=== PATIENT | male | born 1980 | race Two or more races ===

== ENCOUNTER 2017-08-20 17:46 | Observation (INO) | payer OTHER, MEDICAID ==
[~2017-08-20] VITALS: Ht 180.3 cm; Wt 83.9 kg
[~2017-08-20 17:46] MED LIST: ASCO500T11 PO; DOXY-216 PO; IBUP800T24 PO; METF500T PO
[2017-08-20] MEDS ORDERED: ACETAMINOPHEN 325 MG TAB PO ONE (18:15)
[2017-08-20] MEDS ORDERED: SODIUM CHLORIDE 0.9% 1,000 ML IVB ONE (19:05)
[2017-08-20 19:06] LABS: Basophils # (auto) 0.1 uL; Basophils % (auto) 0.8 % (0.0-2.0); Eosinophils # (auto) 0.1 uL; Eosinophils % (auto) 1.3 % (0.0-7.0); Hematocrit 35.2 % (41.0-53.0); Hemoglobin 11.5 g/dL (13.5-17.5); Lymphocytes # (auto) 0.9 uL; Mean Corpuscular Hemoglobin 28.4 pg (28.0-32.0); Mean Corpuscular Hgb Conc. 32.7 g/dL (32.0-36.0); Mean Corpuscular Volume 86.9 fL (80.0-100.0); Monocytes # (auto) 0.6 uL; Monocytes % (auto) 7.5 % (0.0-12.0); Neutrophils % (auto) 80.4 % (37.0-80.0); Platelet Count (auto) 329 10^3/uL (140-450); Red Blood Cells 4.05 10^6/uL (4.5-5.90); Red Cell Distribution Width 14.8 % (11.8-14.3); White Blood Cell 8.7 10^3/uL (4.4-10.8)
[2017-08-20 19:24] LABS: Albumin 2.2 g/dL (3.4-5.0); BUN/Creatinine Ratio 16.1; Calcium 8.1 mg/dL (8.5-10.1); Potassium 3.4 mmol/L (3.5-5.1)
[2017-08-20 19:27] LABS: Bilirubin, Total 0.2 mg/dL (0.2-1.0); Total Protein 7.9 g/dL (6.4-8.2)
[2017-08-20 19:53] LABS: INR 0.92 (0.9-1.15); Partial Thromboplastin Time 21.7 sec (22.64-33.71)
[2017-08-20] MEDS ORDERED: cefTRIAXone 1GM/10ml IVPUSH 10 ML IV ONE (20:00)
[2017-08-20 20:58] LABS: Urine Bacteria MANY /hpf (None Seen); Urine Blood Negative /uL (Negative); Urine Mucus FEW (None Seen); Urine WBC 36 /hpf (0 - 3)
[2017-08-20] MEDS ORDERED: VANCOMYCIN 1GM/250ML 250 ML IV ONE (21:45)
[2017-08-20] MEDS ORDERED: PIPERACILLIN-TAZO 4.5GM 100 ML IV ONE (21:45)
[2017-08-20 22:00] VITALS: BP 128/78
[2017-08-20] MEDS ORDERED: MORPHINE SULFATE 4 MG/ML SYR/VIAL IV ONE (22:00)
[2017-08-20] MEDS ORDERED: MORPHINE SULFATE INJECTION 1 ML ONE (22:43)
== END 2017-08-21 02:04 | disposition home or self-care (01) | DRG 592 ==
LOC: EDBD 17:46 → ER 17:51 → OVERFLOW 19:07 → ER 08-21 02:04
PROVIDERS: ADMIT Family Medicine; ATTEND Family Medicine
DX: L89.314 Pressure ulcer of right buttock, stage 4 (principal); L89.130 Pressure ulcer of right lower back, unstageable; G82.20 Paraplegia, unspecified; N39.0 Urinary tract infection, site not specified; E11.9 Type 2 diabetes mellitus without complications; I10 Essential (primary) hypertension; F32.9 Major depressive disorder, single episode, unspecified; F41.9 Anxiety disorder, unspecified; T83.511D Infection and inflammatory reaction due to indwelling urethral catheter, subsequent encounter; W34.00XD Accidental discharge from unspecified firearms or gun, subsequent encounter; Y84.6 Urinary catheterization as the cause of abnormal reaction of the patient, or of later complication, without mention of misadventure at the time of the procedure; Z82.49 Family history of ischemic heart disease and other diseases of the circulatory system
CPT/HCPCS: 36415; 71045; 80053; 81001; 83605; 83735; 85025; 85610; 85730; 87040; 93005; 96361; 96365; 96367; 96375; 99285; G0378; J2270; J2543; J3370

== ENCOUNTER 2017-12-11 22:15 | Emergency (ER) | payer OTHER, MEDICAID ==
[~2017-12-11] VITALS: Ht 180.3 cm; Wt 84.8 kg
[2017-12-11 22:58] LABS: Basophils # (auto) 0.1 uL; Basophils % (auto) 0.7 % (0.0-2.0); Eosinophils # (auto) 0.1 uL; Hemoglobin 10.2 g/dL (13.5-17.5); Lymphocytes # (auto) 1.1 uL; Lymphocytes % (auto) 14.7 % (10.0-50.0); Mean Corpuscular Volume 86.9 fL (80.0-100.0); Monocytes # (auto) 0.6 uL; Neutrophils # (auto) 5.5 uL; Red Cell Distribution Width 16.2 % (11.8-14.3)
[2017-12-11 23:00] LABS: Eosinophils % (auto) 1.8 % (0.0-7.0); Hematocrit 31.1 % (41.0-53.0); Mean Corpuscular Hemoglobin 28.5 pg (28.0-32.0); Mean Corpuscular Hgb Conc. 32.8 g/dL (32.0-36.0); Monocytes % (auto) 7.6 % (0.0-12.0); Neutrophils % (auto) 75.2 % (37.0-80.0); Platelet Count (auto) 545 10^3/uL (140-450); Red Blood Cells 3.58 10^6/uL (4.5-5.90); White Blood Cell 7.3 10^3/uL (4.4-10.8)
[2017-12-11 23:26] LABS: Alanine Aminotransferase 14 U/L (16-61); Anion Gap 13 (5-15); Aspartate Aminotransferase 6 U/L (15-37); BUN/Creatinine Ratio 12.3; Blood Urea Nitrogen 8 mg/dL (7-18); Calcium 8.5 mg/dL (8.5-10.1); Carbon Dioxide 20 mmol/L (21-32); Chloride 100 mmol/L (98-107); GFR African American 178 mL/min; GFR Non-African American 147 mL/min; Glucose 274 mg/dL (74-106); Potassium 3.1 mmol/L (3.5-5.1); Sodium 133 mmol/L (136-145)
[2017-12-11 23:28] LABS: Alkaline Phosphatase 93 U/L (45-117); Bilirubin, Total < 0.1 mg/dL (0.2-1.0); Lactic Acid w/Reflex 2.7 mmol/L (0.4-2.0); Total Protein 7.2 g/dL (6.4-8.2)
[2017-12-12] MEDS ORDERED: CLINDAMYCIN 900MG IV 50 ML IV ONE (03:45)
[2017-12-12] MEDS ORDERED: SODIUM CHLORIDE 0.9% 1,000 ML IV ONE (03:45)
[2017-12-12] MEDS ORDERED: PIPERACILLIN-TAZOB 3.375GM 100 ML IV ONE (03:45)
[2017-12-12] MEDS ORDERED: ONDANSETRON HCL 4 MG/2 ML VIAL IV ONE (04:30)
[2017-12-12] MEDS ORDERED: MORPHINE SULFATE 4 MG/ML SYR/VIAL IV ONE (04:30)
[2017-12-12] MEDS ORDERED: diphenhdrAMINE HCL 50 MG/1 ML VL IV ONE (05:15)
[2017-12-12 06:19] LABS: Urine Bacteria MANY /hpf (None Seen); Urine Blood TRACE /uL (Negative); Urine Mucus FEW (None Seen); Urine Specific Gravity 1.017 (1.001-1.035); Urine WBC 23 /hpf (0 - 3)
[2017-12-12 07:08] LABS: INR 0.96 (0.9-1.15); Partial Thromboplastin Time 30.8 sec (23.78-33.04); Prothrombin Time 10.3 sec (9.27-12.13)
[2017-12-12] MEDS ORDERED: MORPHINE SULFATE 4 MG/ML SYR/VIAL IV PRN (10:00)
[2017-12-12 13:22] VITALS: BP 110/79
== END 2017-12-12 13:44 | disposition short-term general hospital (02) ==
LOC: ER 22:15
DX: L89.894 Pressure ulcer of other site, stage 4 (principal); E11.622 Type 2 diabetes mellitus with other skin ulcer; I10 Essential (primary) hypertension; Z79.899 Other long term (current) drug therapy; Z79.84 Long term (current) use of oral hypoglycemic drugs
CPT/HCPCS: 36415; 36600; 71045; 80053; 81001; 82805; 83605; 85025; 85610; 85730; 87040; 87077; 87186; 87205; 93005; 96365; 96366; 96368; 96375; 96376; 99285; J1200; J2270; J2405; J2543; J3490; J7030

== ENCOUNTER 2020-11-14 15:31 | Inpatient (IN) | payer OTHER, MEDICAID ==
[~2020-11-14] VITALS: Ht 180.3 cm; Wt 82.0 kg
[~2020-11-14 15:31] MED LIST changes: -DOXY-216 PO; +DOXY-286 PO; -IBUP800T24 PO; +IBUP800T27 PO
[2020-11-14] MEDS ORDERED: SODIUM CHLORIDE 0.9% 1,000 ML IV ONE ×2 (16:00)
[2020-11-14] MEDS ORDERED: PIPERACILLIN-TAZOB 3.375GM 100 ML IV ONE (16:00)
[2020-11-14] MEDS ORDERED: POTA1TAB4 (16:14)
[2020-11-14] MEDS ORDERED: INSLANTI SC (16:14)
[2020-11-14] MEDS ORDERED: CHOL1TAB42 PO (16:14)
[2020-11-14] MEDS ORDERED: AMOX500T92 (16:14)
[2020-11-14] MEDS ORDERED: APIX5TAB PO (16:14)
[2020-11-14] MEDS ORDERED: [UNRECOGNIZED DRUG - CODE] (16:14)
[2020-11-14] MEDS ORDERED: LEVO75TA6 PO (16:14)
[2020-11-14] MEDS ORDERED: PANT40T (16:14)
[2020-11-14] MEDS ORDERED: ENAL20TA8 PO (16:14)
[2020-11-14 17:26] LABS: Basophils # (auto) 0 10 ^3/uL (0-0.2); Basophils % (auto) 0.2 % (0.0-2.0); Eosinophils # (auto) 0 10 ^3/uL (0-0.8); Eosinophils % (auto) 0.1 % (0.0-7.0); Hematocrit 24.5 % (41.0-53.0); Hemoglobin 8.3 g/dL (13.5-17.5); Lymphocytes # (auto) 0.3 10 ^3/uL (0.4-5.4); Lymphocytes % (auto) 1.7 % (10.0-50.0); Mean Corpuscular Hemoglobin 25.3 pg (28.0-32.0); Mean Corpuscular Hgb Conc. 33.8 g/dL (32.0-36.0); Mean Corpuscular Volume 74.8 fL (80.0-100.0); Monocytes # (auto) 0.6 10 ^3/uL (0-1.3); Monocytes % (auto) 3.4 % (0.0-12.0); Neutrophils # (auto) 15.3 10 ^3/uL (1.6-8.6); Neutrophils % (auto) 94.6 % (37.0-80.0); Red Blood Cells 3.27 10^6/uL (4.5-5.90); Red Cell Distribution Width 16.6 % (11.8-14.3); White Blood Cell 16.2 10^3/uL (4.4-10.8)
[2020-11-14 17:35] LABS: Albumin 1.9 g/dL (3.4-5.0); Anion Gap 8 (5-15); BUN/Creatinine Ratio 22.8; Blood Urea Nitrogen 33 mg/dL (7-18); Carbon Dioxide 17 mmol/L (21-32); Chloride 105 mmol/L (98-107); GFR African American 69 mL/min; GFR Non-African American 57 mL/min; Glucose 175 mg/dL (74-106); Potassium 4.8 mmol/L (3.5-5.1); Sodium 130 mmol/L (136-145)
[2020-11-14 17:38] LABS: INR 1.13 (0.9-1.15); Partial Thromboplastin Time 37.1 sec (23.0-31.2)
[2020-11-14 17:46] LABS: Alanine Aminotransferase 21 U/L (16-61); Alkaline Phosphatase 290 U/L (45-117); Aspartate Aminotransferase 14 U/L (15-37); Bilirubin, Total 0.7 mg/dL (0.2-1.0); Total Protein 6.6 g/dL (6.4-8.2)
[2020-11-14] MEDS ORDERED: IOHEXOL 300 MG/ML 100ML BOTTLE IJ ONE (18:02)
[2020-11-14] MEDS ORDERED: VANCOMYCIN PER PHARMACY 0 MG IV SCH (19:00)
[2020-11-14] MEDS ORDERED: ONDANSETRON HCL 4 MG/2 ML VIAL IV PRN (19:00)
[2020-11-14] MEDS ORDERED: NITROGLYCERIN 0.4 MG SL TAB SL PRN (19:00)
[2020-11-14 19:10] LABS: Urine Bacteria FEW /hpf (None Seen); Urine Blood Negative /uL (Negative); Urine Specific Gravity 1.018 (1.001-1.035); Urine WBC 9 /hpf (0 - 3)
[2020-11-14 19:23] LABS: Alcohol, Urine < 3.0 mg/dL (0-10); Amphetamine Screen, Urine NEGATIVE (NEGATIVE); Barbiturate Scree,Urine NEGATIVE (NEGATIVE); Benzodiazephine Screen, Urine NEGATIVE (NEGATIVE); Cannabinoid Screen, Urine NEGATIVE (NEGATIVE); Cocaine Screen, Urine NEGATIVE (NEGATIVE); Opiate Scree,Urine NEGATIVE (NEGATIVE); Phencyclidine Screen, Urine NEGATIVE (NEGATIVE)
[2020-11-14] MEDS ORDERED: VANCOMYCIN 1GM/250ML 250 ML IV ONE (20:00)
[2020-11-14] MEDS: MORPHINE SULF INJ 2 MG/ML SYRINGE 1ML IV PRN (21:32)
[2020-11-14 23:00] VITALS: BP 123/63
[2020-11-15] MEDS: metroNIDAZOLE 500MG/100ML 100 ML IV SCH ×2 (00:27→06:06)
[2020-11-15] MEDS: MORPHINE SULF INJ 2 MG/ML SYRINGE 1ML IV PRN ×7 (00:35→21:26)
[2020-11-15] MEDS ORDERED: dilTIAZem 25 MG/5 ML VIAL IV ONE (01:30)
[2020-11-15] MEDS: SODIUM CHLORIDE 0.9% 1,000 ML IV SCH ×3 (01:40→15:00)
[2020-11-15] MEDS ORDERED: LABETALOL HCL 5 MG/ML 4ML SYRINGE IV ONE (03:00)
[2020-11-15 05:39] VITALS: BP 121/60
[2020-11-15 07:18] LABS: Basophils # (auto) 0 10 ^3/uL (0-0.2); Basophils % (auto) 0.4 % (0.0-2.0); Eosinophils # (auto) 0 10 ^3/uL (0-0.8); Eosinophils % (auto) 0.1 % (0.0-7.0); Hematocrit 21.1 % (41.0-53.0); Lymphocytes # (auto) 0.4 10 ^3/uL (0.4-5.4); Lymphocytes % (auto) 3.3 % (10.0-50.0); Mean Corpuscular Hemoglobin 25.7 pg (28.0-32.0); Monocytes # (auto) 0.7 10 ^3/uL (0-1.3); Monocytes % (auto) 6.2 % (0.0-12.0); Neutrophils # (auto) 10.1 10 ^3/uL (1.6-8.6); Red Cell Distribution Width 16.6 % (11.8-14.3); White Blood Cell 11.2 10^3/uL (4.4-10.8)
[2020-11-15 07:51] LABS: Potassium 4.4 mmol/L (3.5-5.1)
[2020-11-15 07:58] LABS: Albumin 1.7 g/dL (3.4-5.0); BUN/Creatinine Ratio 24.2; Bilirubin, Total 0.6 mg/dL (0.2-1.0); Calcium 7.4 mg/dL (8.5-10.1); Total Protein 5.8 g/dL (6.4-8.2)
[2020-11-15 09:00] VITALS: BP 111/54
[2020-11-15] MEDS ORDERED: levoFLOXacin 500MG 100 ML IV SCH (10:00)
[2020-11-15] MEDS ORDERED: DEXTROSE (50%) 50ML SYRG IV PRN (11:00)
[2020-11-15] MEDS ORDERED: PANTOPRAZOLE 40 MG TAB PO ONE (11:15)
[2020-11-15] MEDS: VANCOMYCIN 1GM/250ML 250 ML IV SCH ×2 (11:41→22:44)
[2020-11-15] MEDS: ACCU-CHEK COMFORT CURVE STRIP VI SCH ×2 (11:43→17:24)
[2020-11-15] MEDS: InsuLIN REG 1unit/0.01ml Soln (100units/ml) SC SCH ×2 (12:17→17:41)
[2020-11-15 13:00] VITALS: BP 109/67
[2020-11-15 13:54] LABS: % Iron Saturation 6.2 % (20-55)
[2020-11-15] MEDS: IRON SUCROSE COMPLEX 200 MG in SODIUM CHL 0.9% 100 ML IV SCH (15:00)
[2020-11-15] MEDS: MEROPENEM 1GM IVPB 100 ML IV SCH ×2 (15:00→17:35)
[2020-11-15 17:00] VITALS: BP 129/62
[2020-11-15 22:15] VITALS: BP 152/74
[2020-11-15] MEDS: HYDROcodone-ACET 5/325MG TAB PO PRN (22:44)
[2020-11-16] MEDS: InsuLIN REG 1unit/0.01ml Soln (100units/ml) SC SCH ×4 (00:05→18:08)
[2020-11-16] MEDS: SODIUM CHLORIDE 0.9% 1,000 ML IV SCH ×3 (01:00→22:49)
[2020-11-16] MEDS: MORPHINE SULF INJ 2 MG/ML SYRINGE 1ML IV PRN ×6 (01:26→23:39)
[2020-11-16] MEDS: MEROPENEM 1GM IVPB 100 ML IV SCH ×3 (05:18→22:49)
[2020-11-16] MEDS: ACCU-CHEK COMFORT CURVE STRIP VI SCH ×4 (06:00→18:07)
[2020-11-16] MEDS: LEVOTHYROXINE SODIUM 25 MCG TAB PO SCH (06:08)
[2020-11-16] MEDS: HYDROcodone-ACET 5/325MG TAB PO PRN (06:08)
[2020-11-16 08:30] VITALS: BP 111/61
[2020-11-16 08:50] LABS: Basophils # (auto) 0 10 ^3/uL (0-0.2); Basophils % (auto) 0.4 % (0.0-2.0); Eosinophils # (auto) 0 10 ^3/uL (0-0.8); Eosinophils % (auto) 0.1 % (0.0-7.0); Hematocrit 20.2 % (41.0-53.0); Lymphocytes # (auto) 0.6 10 ^3/uL (0.4-5.4); Lymphocytes % (auto) 5.4 % (10.0-50.0); Mean Corpuscular Hemoglobin 25.6 pg (28.0-32.0); Mean Corpuscular Hgb Conc. 34.5 g/dL (32.0-36.0); Mean Corpuscular Volume 74.2 fL (80.0-100.0); Monocytes # (auto) 0.9 10 ^3/uL (0-1.3); Monocytes % (auto) 7.5 % (0.0-12.0); Neutrophils # (auto) 10.4 10 ^3/uL (1.6-8.6); Neutrophils % (auto) 86.6 % (37.0-80.0); Red Blood Cells 2.73 10^6/uL (4.5-5.90); Red Cell Distribution Width 16.5 % (11.8-14.3)
[2020-11-16] MEDS: PANTOPRAZOLE 40 MG TAB PO SCH (09:07)
[2020-11-16 09:25] LABS: BUN/Creatinine Ratio 17.3; Calcium 8.1 mg/dL (8.5-10.1); Potassium 4.1 mmol/L (3.5-5.1)
[2020-11-16] MEDS: VANCOMYCIN 1GM/250ML 250 ML IV SCH ×2 (11:00→12:25)
[2020-11-16] MEDS: IRON SUCROSE COMPLEX 200 MG in SODIUM CHL 0.9% 100 ML IV SCH (11:16)
[2020-11-16] MEDS ORDERED: SODIUM FERR GLUC 62.5MG/5ML 125 MG in SODIUM CHL 0.9% 100 ML IV ONE (12:15)
[2020-11-16 12:30] VITALS: BP 127/74
[2020-11-16 17:00] VITALS: BP 134/63
[2020-11-16] MEDS ORDERED: IOHEXOL 300 MG/ML 100ML BOTTLE IJ ONE ×2 (18:39→18:45)
[2020-11-16 20:00] VITALS: BP 129/68
[2020-11-16 22:00] VITALS: BP 120/68
[2020-11-17] VITALS (8 sets, daily range): BP systolic 122–144; BP diastolic 60–81
[2020-11-17] MEDS: ACCU-CHEK COMFORT CURVE STRIP VI SCH ×4 (00:10→17:58)
[2020-11-17] MEDS: InsuLIN REG 1unit/0.01ml Soln (100units/ml) SC SCH ×5 (00:10→23:09)
[2020-11-17] MEDS: VANCOMYCIN 1GM/250ML 250 ML IV SCH (02:45)
[2020-11-17] MEDS: MORPHINE SULF INJ 2 MG/ML SYRINGE 1ML IV PRN ×8 (02:45→21:16)
[2020-11-17] MEDS: MEROPENEM 1GM IVPB 100 ML IV SCH ×3 (05:55→21:16)
[2020-11-17] MEDS: LEVOTHYROXINE SODIUM 25 MCG TAB PO SCH (06:04)
[2020-11-17 06:17] LABS: Basophils # (auto) 0 10 ^3/uL (0-0.2); Basophils % (auto) 0.3 % (0.0-2.0); Lymphocytes # (auto) 0.7 10 ^3/uL (0.4-5.4); Monocytes # (auto) 0.8 10 ^3/uL (0-1.3); Neutrophils # (auto) 8.3 10 ^3/uL (1.6-8.6); White Blood Cell 9.9 10^3/uL (4.4-10.8)
[2020-11-17 06:22] LABS: Eosinophils # (auto) 0.1 10 ^3/uL (0-0.8); Eosinophils % (auto) 0.7 % (0.0-7.0); Hematocrit 19.5 % (41.0-53.0); Lymphocytes % (auto) 6.7 % (10.0-50.0); Mean Corpuscular Hgb Conc. 34.6 g/dL (32.0-36.0); Mean Corpuscular Volume 75.1 fL (80.0-100.0); Monocytes % (auto) 8.2 % (0.0-12.0); Neutrophils % (auto) 84.1 % (37.0-80.0); Nucleated Red Blood Cells % 0.1 %; Red Blood Cells 2.59 10^6/uL (4.5-5.90); Red Cell Distribution Width 16.6 % (11.8-14.3)
[2020-11-17 06:28] LABS: Hemoglobin 6.7 g/dL (13.5-17.5)
[2020-11-17 06:34] LABS: Calcium 7.6 mg/dL (8.5-10.1); Potassium 4.2 mmol/L (3.5-5.1)
[2020-11-17 06:36] LABS: BUN/Creatinine Ratio 15.3
[2020-11-17] MEDS: SODIUM CHLORIDE 0.9% 1,000 ML IV SCH ×2 (06:52→11:45)
[2020-11-17] MEDS: PANTOPRAZOLE 40 MG TAB PO SCH (08:47)
[2020-11-17] MEDS: SODIUM FERR GLUC 62.5MG/5ML 125 MG in SODIUM CHL 0.9% 100 ML IV SCH (09:54)
[2020-11-18] MEDS: ACCU-CHEK COMFORT CURVE STRIP VI SCH ×4 (00:15→18:22)
[2020-11-18] MEDS: MORPHINE SULF INJ 2 MG/ML SYRINGE 1ML IV PRN ×9 (00:20→23:45)
[2020-11-18 05:00] VITALS: BP 115/69
[2020-11-18] MEDS: SODIUM CHLORIDE 0.9% 1,000 ML IV SCH (05:05)
[2020-11-18 05:46] LABS: Basophils # (auto) 0.1 10 ^3/uL (0-0.2); Basophils % (auto) 0.6 % (0.0-2.0); Eosinophils # (auto) 0.1 10 ^3/uL (0-0.8); Eosinophils % (auto) 1.5 % (0.0-7.0); Hematocrit 23.4 % (41.0-53.0); Lymphocytes # (auto) 0.6 10 ^3/uL (0.4-5.4); Lymphocytes % (auto) 6.6 % (10.0-50.0); Mean Corpuscular Hemoglobin 26.1 pg (28.0-32.0); Mean Corpuscular Hgb Conc. 34.3 g/dL (32.0-36.0); Mean Corpuscular Volume 76.2 fL (80.0-100.0); Monocytes # (auto) 0.7 10 ^3/uL (0-1.3); Monocytes % (auto) 7.8 % (0.0-12.0); Neutrophils % (auto) 83.5 % (37.0-80.0); Red Blood Cells 3.07 10^6/uL (4.5-5.90); Red Cell Distribution Width 16.5 % (11.8-14.3); White Blood Cell 9.6 10^3/uL (4.4-10.8)
[2020-11-18 06:07] LABS: BUN/Creatinine Ratio 15.9; Calcium 7.7 mg/dL (8.5-10.1); Potassium 4.5 mmol/L (3.5-5.1)
[2020-11-18] MEDS: MEROPENEM 1GM IVPB 100 ML IV SCH ×3 (06:31→22:15)
[2020-11-18] MEDS: LEVOTHYROXINE SODIUM 25 MCG TAB PO SCH (06:32)
[2020-11-18] MEDS: InsuLIN REG 1unit/0.01ml Soln (100units/ml) SC SCH ×3 (06:34→18:31)
[2020-11-18 09:00] VITALS: BP 143/83
[2020-11-18] MEDS: PANTOPRAZOLE 40 MG TAB PO SCH (10:12)
[2020-11-18] MEDS: VANCOMYCIN 1GM/250ML 250 ML IV SCH (10:12)
[2020-11-18] MEDS: SODIUM FERR GLUC 62.5MG/5ML 125 MG in SODIUM CHL 0.9% 100 ML IV SCH (12:08)
[2020-11-18 13:00] VITALS: BP 138/78
[2020-11-18] MEDS ORDERED: POLYETHYLENE GLYCOL 17 GM PWDR PO ONE (14:15)
[2020-11-18 17:00] VITALS: BP 133/73
[2020-11-18] MEDS ORDERED: OXYCODONE W/ ACETAMINOPHEN 5/325MG TABLET PO ONE (18:30)
[2020-11-18 22:00] VITALS: BP 124/80
[2020-11-19] MEDS: ACCU-CHEK COMFORT CURVE STRIP VI SCH ×4 (00:17→17:54)
[2020-11-19] MEDS: InsuLIN REG 1unit/0.01ml Soln (100units/ml) SC SCH ×4 (00:18→17:53)
[2020-11-19] MEDS: MORPHINE SULF INJ 2 MG/ML SYRINGE 1ML IV PRN ×6 (02:43→22:16)
[2020-11-19 05:00] VITALS: BP 120/54
[2020-11-19] MEDS: MEROPENEM 1GM IVPB 100 ML IV SCH ×3 (05:37→22:02)
[2020-11-19 06:05] LABS: Lymphocytes # (auto) 0.8 10 ^3/uL (0.4-5.4); Monocytes # (auto) 0.6 10 ^3/uL (0-1.3); Neutrophils # (auto) 6.8 10 ^3/uL (1.6-8.6); Red Cell Distribution Width 16.8 % (11.8-14.3); White Blood Cell 8.4 10^3/uL (4.4-10.8)
[2020-11-19 06:08] LABS: Basophils # (auto) 0.1 10 ^3/uL (0-0.2); Basophils % (auto) 0.6 % (0.0-2.0); Eosinophils # (auto) 0.1 10 ^3/uL (0-0.8); Eosinophils % (auto) 1.8 % (0.0-7.0); Hematocrit 23.8 % (41.0-53.0); Hemoglobin 8.6 g/dL (13.5-17.5); Lymphocytes % (auto) 9.2 % (10.0-50.0); Mean Corpuscular Hemoglobin 27.4 pg (28.0-32.0); Mean Corpuscular Hgb Conc. 36.3 g/dL (32.0-36.0); Mean Corpuscular Volume 75.5 fL (80.0-100.0); Monocytes % (auto) 7.2 % (0.0-12.0); Neutrophils % (auto) 81.2 % (37.0-80.0); Red Blood Cells 3.15 10^6/uL (4.5-5.90)
[2020-11-19] MEDS: LEVOTHYROXINE SODIUM 25 MCG TAB PO SCH (06:23)
[2020-11-19 06:24] LABS: Potassium 4.4 mmol/L (3.5-5.1)
[2020-11-19 06:29] LABS: BUN/Creatinine Ratio 14.9
[2020-11-19 08:30] VITALS: BP 121/75
[2020-11-19] MEDS: PANTOPRAZOLE 40 MG TAB PO SCH (09:13)
[2020-11-19] MEDS: VANCOMYCIN 1GM/250ML 250 ML IV SCH (10:26)
[2020-11-19] MEDS: OXYCODONE W/ ACETAMINOPHEN 5/325MG TABLET PO PRN ×2 (12:17→20:25)
[2020-11-19 12:31] VITALS: BP 135/71
[2020-11-19] MEDS: SODIUM FERR GLUC 62.5MG/5ML 125 MG in SODIUM CHL 0.9% 100 ML IV SCH (12:46)
[2020-11-19 17:00] VITALS: BP 135/73
[2020-11-19 22:00] VITALS: BP 140/71
[2020-11-20] MEDS: InsuLIN REG 1unit/0.01ml Soln (100units/ml) SC SCH ×4 (01:02→18:27)
[2020-11-20] MEDS: ACCU-CHEK COMFORT CURVE STRIP VI SCH ×4 (01:02→18:13)
[2020-11-20] MEDS: MORPHINE SULF INJ 2 MG/ML SYRINGE 1ML IV PRN ×6 (01:13→23:32)
[2020-11-20 05:00] VITALS: BP 134/77
[2020-11-20 05:36] LABS: Basophils # (auto) 0.1 10 ^3/uL (0-0.2); Eosinophils # (auto) 0.1 10 ^3/uL (0-0.8); Hemoglobin 8.2 g/dL (13.5-17.5); Lymphocytes # (auto) 0.9 10 ^3/uL (0.4-5.4); Monocytes # (auto) 0.6 10 ^3/uL (0-1.3)
[2020-11-20 05:37] LABS: Basophils % (auto) 0.9 % (0.0-2.0); Eosinophils % (auto) 1.4 % (0.0-7.0); Hematocrit 23.7 % (41.0-53.0); Lymphocytes % (auto) 9.7 % (10.0-50.0); Mean Corpuscular Hemoglobin 26.3 pg (28.0-32.0); Mean Corpuscular Hgb Conc. 34.8 g/dL (32.0-36.0); Mean Corpuscular Volume 75.6 fL (80.0-100.0); Monocytes % (auto) 7.1 % (0.0-12.0); Neutrophils # (auto) 7.3 10 ^3/uL (1.6-8.6); Neutrophils % (auto) 80.9 % (37.0-80.0); Red Blood Cells 3.13 10^6/uL (4.5-5.90); Red Cell Distribution Width 16.8 % (11.8-14.3)
[2020-11-20 05:52] LABS: Albumin 1.9 g/dL (3.4-5.0); Potassium 4.3 mmol/L (3.5-5.1)
[2020-11-20 05:56] LABS: BUN/Creatinine Ratio 17.5; Bilirubin, Total 0.3 mg/dL (0.2-1.0); Total Protein 6.9 g/dL (6.4-8.2)
[2020-11-20] MEDS: MEROPENEM 1GM IVPB 100 ML IV SCH ×3 (06:27→22:00)
[2020-11-20] MEDS: LEVOTHYROXINE SODIUM 25 MCG TAB PO SCH (06:27)
[2020-11-20] MEDS: OXYCODONE W/ ACETAMINOPHEN 5/325MG TABLET PO PRN ×2 (06:56→20:38)
[2020-11-20 08:30] VITALS: BP 109/58
[2020-11-20 08:49] VITALS: BP 109/58
[2020-11-20] MEDS: PANTOPRAZOLE 40 MG TAB PO SCH (09:34)
[2020-11-20] MEDS: VANCOMYCIN 1GM/250ML 250 ML IV SCH (09:35)
[2020-11-20] MEDS: SODIUM FERR GLUC 62.5MG/5ML 125 MG in SODIUM CHL 0.9% 100 ML IV SCH (12:45)
[2020-11-20 13:16] VITALS: BP 132/74
[2020-11-20 17:00] VITALS: BP 140/80
[2020-11-20 22:00] VITALS: BP 129/78
[2020-11-21] VITALS (9 sets, daily range): BP systolic 100–139; BP diastolic 53–87
[2020-11-21] MEDS: InsuLIN REG 1unit/0.01ml Soln (100units/ml) SC SCH ×5 (00:18→23:50)
[2020-11-21] MEDS: ACCU-CHEK COMFORT CURVE STRIP VI SCH ×5 (00:18→23:50)
[2020-11-21] MEDS ORDERED: VANCOMYCIN 1GM/250ML 250 ML IV SCH (02:00)
[2020-11-21] MEDS: MORPHINE SULF INJ 2 MG/ML SYRINGE 1ML IV PRN ×6 (02:32→22:10)
[2020-11-21] MEDS: OXYCODONE W/ ACETAMINOPHEN 5/325MG TABLET PO PRN ×2 (05:14→23:40)
[2020-11-21] MEDS: MEROPENEM 1GM IVPB 100 ML IV SCH ×3 (05:55→21:42)
[2020-11-21] MEDS: LEVOTHYROXINE SODIUM 25 MCG TAB PO SCH (06:54)
[2020-11-21] MEDS: PANTOPRAZOLE 40 MG TAB PO SCH (09:09)
[2020-11-21 09:22] LABS: Basophils # (auto) 0.1 10 ^3/uL (0-0.2); Eosinophils # (auto) 0.1 10 ^3/uL (0-0.8); Monocytes # (auto) 0.6 10 ^3/uL (0-1.3); Neutrophils # (auto) 6.8 10 ^3/uL (1.6-8.6)
[2020-11-21 09:23] LABS: Basophils % (auto) 0.9 % (0.0-2.0); Eosinophils % (auto) 1.3 % (0.0-7.0); Hematocrit 26.2 % (41.0-53.0); Hemoglobin 8.7 g/dL (13.5-17.5); Lymphocytes % (auto) 11.5 % (10.0-50.0); Mean Corpuscular Hemoglobin 25.2 pg (28.0-32.0); Mean Corpuscular Hgb Conc. 33.2 g/dL (32.0-36.0); Neutrophils % (auto) 79.3 % (37.0-80.0); Red Blood Cells 3.45 10^6/uL (4.5-5.90); Red Cell Distribution Width 17.6 % (11.8-14.3); White Blood Cell 8.6 10^3/uL (4.4-10.8)
[2020-11-21 09:36] LABS: INR 1.03 (0.9-1.15)
[2020-11-21 09:49] LABS: BUN/Creatinine Ratio 17.4; Calcium 8.3 mg/dL (8.5-10.1); Potassium 4.5 mmol/L (3.5-5.1)
[2020-11-21] MEDS ORDERED: fentaNYL CITRATE 100 MCG/2 ML VL ONE (12:43)
[2020-11-21] MEDS ORDERED: MIDAZOLAM HCL 1MG/1ML-2 ML VIAL ONE (12:44)
[2020-11-21] MEDS ORDERED: LIDOCAINE VISCOUS 2% 15ML UD ONE (12:53)
[2020-11-21] MEDS: SODIUM CHLOR 0.9% PF (SALINE LOCK) 10ML VIAL/SYR IV SCH ×2 (14:48→22:10)
[2020-11-21] MEDS: SODIUM FERR GLUC 62.5MG/5ML 125 MG in SODIUM CHL 0.9% 100 ML IV SCH (14:48)
[2020-11-21] MEDS ORDERED: CEFEPIME 2 GM in SODIUM CHL 0.9% 50 ML IV SCH (22:00)
[2020-11-22] MEDS: MORPHINE SULF INJ 2 MG/ML SYRINGE 1ML IV PRN ×7 (01:28→23:38)
[2020-11-22] MEDS ORDERED: ENOXAPARIN SOD 100 MG/1 ML SYRINGE SC SCH (02:00)
[2020-11-22 05:00] VITALS: BP 144/63
[2020-11-22] MEDS: SODIUM CHLOR 0.9% PF (SALINE LOCK) 10ML VIAL/SYR IV SCH ×4 (05:58→23:08)
[2020-11-22] MEDS: MEROPENEM 1GM IVPB 100 ML IV SCH (05:59)
[2020-11-22] MEDS: ACCU-CHEK COMFORT CURVE STRIP VI SCH ×4 (06:12→23:08)
[2020-11-22] MEDS: InsuLIN REG 1unit/0.01ml Soln (100units/ml) SC SCH ×4 (06:13→23:10)
[2020-11-22] MEDS: LEVOTHYROXINE SODIUM 25 MCG TAB PO SCH (06:59)
[2020-11-22 08:30] VITALS: BP 143/66
[2020-11-22 09:00] VITALS: BP 143/66
[2020-11-22] MEDS: PANTOPRAZOLE 40 MG TAB PO SCH (09:15)
[2020-11-22] MEDS: OXYCODONE W/ ACETAMINOPHEN 5/325MG TABLET PO PRN ×2 (10:34→18:22)
[2020-11-22 12:20] VITALS: BP 131/80
[2020-11-22] MEDS: SODIUM FERR GLUC 62.5MG/5ML 125 MG in SODIUM CHL 0.9% 100 ML IV SCH (13:15)
[2020-11-22] MEDS ORDERED: ENOXAPARIN SOD 80 MG/0.8ML SYRINGE SC SCH (14:00)
[2020-11-22] MEDS ORDERED: LIDOCAINE 1% (LOCAL ANESTH.) PF 5ml SDV ID ONE (14:30)
[2020-11-22 17:06] VITALS: BP 113/55
[2020-11-22 23:06] VITALS: BP 138/95
[2020-11-22] MEDS: APIXABAN 5 MG TAB PO SCH (23:08)
[2020-11-23] MEDS: OXYCODONE W/ ACETAMINOPHEN 5/325MG TABLET PO PRN ×2 (02:22→09:25)
[2020-11-23] MEDS: MORPHINE SULF INJ 2 MG/ML SYRINGE 1ML IV PRN ×7 (03:31→23:13)
[2020-11-23 05:13] VITALS: BP 120/67
[2020-11-23] MEDS: SODIUM CHLOR 0.9% PF (SALINE LOCK) 10ML VIAL/SYR IV SCH ×5 (06:47→22:00)
[2020-11-23] MEDS: ACCU-CHEK COMFORT CURVE STRIP VI SCH ×3 (06:48→18:00)
[2020-11-23] MEDS: LEVOTHYROXINE SODIUM 25 MCG TAB PO SCH (06:49)
[2020-11-23] MEDS: InsuLIN REG 1unit/0.01ml Soln (100units/ml) SC SCH ×4 (06:50→23:01)
[2020-11-23 09:00] VITALS: BP 122/74
[2020-11-23] MEDS: PANTOPRAZOLE 40 MG TAB PO SCH (09:38)
[2020-11-23] MEDS: ERTAPENEM SOD INJ 1 GM in SODIUM CHL 0.9% 50 ML IV SCH (09:38)
[2020-11-23] MEDS: APIXABAN 5 MG TAB PO SCH ×2 (09:38→22:54)
[2020-11-23] MEDS: SODIUM FERR GLUC 62.5MG/5ML 125 MG in SODIUM CHL 0.9% 100 ML IV SCH (12:45)
[2020-11-23 13:00] VITALS: BP 147/89
[2020-11-23 17:31] VITALS: BP 142/92
[2020-11-23 22:00] VITALS: BP 121/68
[2020-11-24] MEDS: MORPHINE SULF INJ 2 MG/ML SYRINGE 1ML IV PRN ×4 (02:35→13:23)
[2020-11-24 05:00] VITALS: BP 135/80
[2020-11-24] MEDS: SODIUM CHLOR 0.9% PF (SALINE LOCK) 10ML VIAL/SYR IV SCH ×3 (05:17→13:40)
[2020-11-24] MEDS: ACCU-CHEK COMFORT CURVE STRIP VI SCH ×3 (05:24→12:21)
[2020-11-24] MEDS: InsuLIN REG 1unit/0.01ml Soln (100units/ml) SC SCH ×2 (05:24→12:00)
[2020-11-24] MEDS: LEVOTHYROXINE SODIUM 25 MCG TAB PO SCH (06:12)
[2020-11-24] MEDS: OXYCODONE W/ ACETAMINOPHEN 5/325MG TABLET PO PRN (07:55)
[2020-11-24 08:00] VITALS: BP 118/70
[2020-11-24 09:00] VITALS: BP 118/70
[2020-11-24] MEDS: ERTAPENEM SOD INJ 1 GM in SODIUM CHL 0.9% 50 ML IV SCH (09:48)
[2020-11-24] MEDS: PANTOPRAZOLE 40 MG TAB PO SCH (09:49)
[2020-11-24] MEDS: APIXABAN 5 MG TAB PO SCH (09:49)
[2020-11-24] MEDS: SODIUM FERR GLUC 62.5MG/5ML 125 MG in SODIUM CHL 0.9% 100 ML IV SCH (12:00)
[2020-11-24 14:07] VITALS: BP 118/70
[2020-11-29] MEDS ORDERED: APIXABAN 5 MG TAB PO SCH (22:00)
== END 2020-11-24 14:40 | disposition home health service (06) | DRG 871 ==
LOC: ER 15:31 → EDBD 15:31 → TELE 18:58 → TELE-EAST 21:58 → EAST 11-16 13:42
PROVIDERS: ADMIT Nurse Practitioner Acute Care; ATTEND Internal Medicine
PROC: 05H933Z Insertion of Infusion Device into Right Brachial Vein, Percutaneous Approach (ICD-10-PCS; 2020-11-16)
PROC: 30233N1 Transfusion of Nonautologous Red Blood Cells into Peripheral Vein, Percutaneous Approach (ICD-10-PCS; principal; 2020-11-17)
PROC: B24BZZ4 Ultrasonography of Heart with Aorta, Transesophageal (ICD-10-PCS; 2020-11-21)
PROC: 05HY33Z Insertion of Infusion Device into Upper Vein, Percutaneous Approach (ICD-10-PCS; 2020-11-22)
PROC: B54MZZA Ultrasonography of Right Upper Extremity Veins, Guidance (ICD-10-PCS; 2020-11-22)
DX: A41.59 Other Gram-negative sepsis (principal); L89.154 Pressure ulcer of sacral region, stage 4; I26.90 Septic pulmonary embolism without acute cor pulmonale; N17.0 Acute kidney failure with tubular necrosis; I33.0 Acute and subacute infective endocarditis; G82.20 Paraplegia, unspecified; E87.1 Hypo-osmolality and hyponatremia; I76 Septic arterial embolism; M46.28 Osteomyelitis of vertebra, sacral and sacrococcygeal region; E44.0 Moderate protein-calorie malnutrition; I82.C12 Acute embolism and thrombosis of left internal jugular vein; R65.20 Severe sepsis without septic shock; C80.1 Malignant (primary) neoplasm, unspecified; D50.9 Iron deficiency anemia, unspecified; E03.9 Hypothyroidism, unspecified; I12.9 Hypertensive chronic kidney disease with stage 1 through stage 4 chronic kidney disease, or unspecified chronic kidney disease; K42.9 Umbilical hernia without obstruction or gangrene; Z20.822 Contact with and (suspected) exposure to COVID-19; Z79.01 Long term (current) use of anticoagulants; Z88.8 Allergy status to other drugs, medicaments and biological substances; Z68.27 Body mass index [BMI] 27.0-27.9, adult; E11.22 Type 2 diabetes mellitus with diabetic chronic kidney disease; E11.69 Type 2 diabetes mellitus with other specified complication; I07.1 Rheumatic tricuspid insufficiency; I83.90 Asymptomatic varicose veins of unspecified lower extremity; K80.20 Calculus of gallbladder without cholecystitis without obstruction; N18.9 Chronic kidney disease, unspecified; Z83.3 Family history of diabetes mellitus; Z86.718 Personal history of other venous thrombosis and embolism; Z87.891 Personal history of nicotine dependence; Z93.3 Colostomy status; Z79.84 Long term (current) use of oral hypoglycemic drugs; E27.8 Other specified disorders of adrenal gland
CPT/HCPCS: 36415; 36569; 71045; 71260; 74177; 74178; 80048; 80053; 80202; 80307; 81001; 82270; 82378; 82565; 82962; 83036; 83540; 83550; 83605; 83615; 83735; 84154; 84443; 84484; 85025; 85049; 85610; 85730; 86850; 86900; 86901; 86920; 87040; 87077; 87081; 87186; 87205; 87426; 93005; 93306; 93312; 93971; 96361; 96365; 96367; 99152; G0378; J1335; J1756; J1815; J1956; J2185; J2250; J2405; J2543; J3490

== ENCOUNTER 2021-09-06 10:28 | Emergency (ER) | payer OTHER, MEDICAID ==
[~2021-09-06] VITALS: Ht 180.3 cm; Wt 89.4 kg
[~2021-09-06 10:28] MED LIST changes: +AMOX500T92; +APIX5TAB PO; +CHOL1TAB42 PO; +ENAL20TA8 PO; +INSLANTI SC; +LEVO75TA6 PO; +PANT40T; +POTA1TAB4; +[UNRECOGNIZED DRUG - CODE]
[2021-09-06 10:32] VITALS: BP 173/99
[2021-09-06] MEDS ORDERED: LIDOCAINE 1%HCL (LOCAL ANESTH) 10 ML MDV ONE (12:22)
[2021-09-06] MEDS ORDERED: LIDOCAINE 1% HCL (LOCAL ANESTH.) INJ 20ML MDV ID ONE (12:30)
[2021-09-06] MEDS ORDERED: IBUP800T27 PO (12:39)
[2021-09-06] MEDS ORDERED: SULF400T11 PO (12:39)
[2021-09-06] MEDS ORDERED: LIDOCAINE 1% HCL (LOCAL ANESTH.) INJ 20ML MDV IJ ONE (12:45)
== END 2021-09-06 12:54 | disposition home or self-care (01) ==
LOC: ER 10:28
DX: L02.212 Cutaneous abscess of back [any part, except buttock and flank] (principal); E11.9 Type 2 diabetes mellitus without complications; K21.9 Gastro-esophageal reflux disease without esophagitis; I10 Essential (primary) hypertension; Z88.1 Allergy status to other antibiotic agents
CPT/HCPCS: 10060; 87205; 99283; J2001

== ENCOUNTER 2023-04-24 14:13 | Inpatient (IN) | payer OTHER, MEDICAID ==
[~2023-04-24] VITALS: Ht 180.3 cm; Wt 119.2 kg
[~2023-04-24 14:13] MED LIST changes: +ENAL1TAB48 PO; -ENAL20TA8 PO; +IBUP-1456 PO; -IBUP800T27 PO; +SULF400T11 PO
[2023-04-24 15:17] LABS: Basophils # (auto) 0 10 ^3/uL (0-0.2); Basophils % (auto) 0.6 % (0.0-2.0); Eosinophils # (auto) 0.3 10 ^3/uL (0-0.8); Eosinophils % (auto) 3.8 % (0.0-7.0); Hematocrit 36.5 % (41.0-53.0); Lymphocytes # (auto) 1.3 10 ^3/uL (0.4-5.4); Mean Corpuscular Hemoglobin 29.1 pg (28.0-32.0); Mean Corpuscular Hgb Conc. 32.9 g/dL (32.0-36.0); Mean Corpuscular Volume 88.5 fL (80.0-100.0); Monocytes # (auto) 0.5 10 ^3/uL (0-1.3); Monocytes % (auto) 6.4 % (0.0-12.0); Neutrophils # (auto) 5.5 10 ^3/uL (1.6-8.6); Neutrophils % (auto) 72.2 % (37.0-80.0); Nucleated Red Blood Cells % 0.1 %; Red Blood Cells 4.12 10^6/uL (4.5-5.90); Red Cell Distribution Width 16.1 % (11.8-14.3); White Blood Cell 7.6 10^3/uL (4.4-10.8)
[2023-04-24 15:45] LABS: Alanine Aminotransferase 26 U/L (7-40); Albumin 3.7 g/dL (3.2-4.8); Alkaline Phosphatase 110 U/L (46-116); Anion Gap 8 (5-15); Aspartate Aminotransferase 21 U/L (13-40); BUN/Creatinine Ratio 16.2 (10.0-20.0); Bilirubin, Total 0.3 mg/dL (0.2-1.0); Blood Urea Nitrogen 22 mg/dL (9-23); Calcium 8.8 mg/dL (8.5-10.1); Carbon Dioxide 20 mmol/L (20-30); Chloride 111 mmol/L (98-107); Glucose 113 mg/dL (74-106); Potassium 5.2 mmol/L (3.5-5.1); Sodium 139 mmol/L (136-145); Total Protein 6.4 g/dL (5.7-8.2)
[2023-04-24] MEDS ORDERED: LABETALOL HCL 5 MG/ML 4ML SYRINGE IV ONE ×2 (18:00→20:16)
[2023-04-24] MEDS ORDERED: ACETAMINOPHEN 325 MG TAB PO PRN (19:15)
[2023-04-24] MEDS ORDERED: NITROGLYCERIN 0.4 MG SL TAB SL PRN (19:15)
[2023-04-24] MEDS ORDERED: DEXTROSE (50%) 50ML SYRG IV PRN (19:30)
[2023-04-24 20:03] VITALS: PULSE 82; RESP 20; O2SAT 98
[2023-04-24] MEDS ORDERED: METOPROLOL TARTRATE 1MG/1ML-5ML VIAL IV ONE (20:13)
[2023-04-24] MEDS ORDERED: MORPHINE SULFATE INJ 2 MG/ml SYRG ONE (20:13)
[2023-04-24 20:27] LABS: Triglycerides 174 mg/dL (< 150)
[2023-04-24 20:28] LABS: LDL Cholesterol 147 mg/dL (< 100)
[2023-04-24] MEDS: SODIUM CHLORIDE 0.9% 1,000 ML IV SCH (20:28)
[2023-04-24 20:29] LABS: Cholesterol 222 mg/dL (< 200); HDL Cholesterol 62 mg/dL (40-59)
[2023-04-24] MEDS ORDERED: HYDROcodone-ACET 10/325MG TAB ONE (20:30)
[2023-04-24] MEDS: HYDROcodone-ACET 10/325MG TAB PO PRN (20:35)
[2023-04-24] MEDS ORDERED: ASCORBIC ACID 500 MG TAB PO SCH (22:00)
[2023-04-24] MEDS: ACCU-CHEK COMFORT CURVE STRIP VI SCH (23:30)
[2023-04-24] MEDS ORDERED: CYCLOBENZAPRINE HCL 10 MG TAB ONE (23:34)
[2023-04-24] MEDS ORDERED: ASCORBIC ACID 500 MG TAB ONE (23:35)
[2023-04-24] MEDS ORDERED: InsuLIN REG 1unit/0.01ml Soln (100units/ml) ONE (23:35)
[2023-04-24] MEDS ORDERED: APIXABAN 5 MG TAB ONE (23:35)
[2023-04-24] MEDS: InsuLIN REG 1unit/0.01ml Soln (100units/ml) SC SCH (23:37)
[2023-04-24] MEDS: ASCORBIC ACID 500 MG TAB PO SCH (23:37)
[2023-04-24] MEDS: CYCLOBENZAPRINE HCL 10 MG TAB PO PRN (23:37)
[2023-04-24] MEDS: APIXABAN 5 MG TAB PO SCH (23:37)
[2023-04-25 02:00] VITALS: PULSE 74; RESP 12; O2SAT 96
[2023-04-25 06:08] LABS: Basophils # (auto) 0.1 10 ^3/uL (0-0.2); Basophils % (auto) 1.2 % (0.0-2.0); Eosinophils # (auto) 0.2 10 ^3/uL (0-0.8); Eosinophils % (auto) 4.6 % (0.0-7.0); Hematocrit 31.2 % (41.0-53.0); Hemoglobin 10.3 g/dL (13.5-17.5); Lymphocytes # (auto) 1.1 10 ^3/uL (0.4-5.4); Lymphocytes % (auto) 22.6 % (10.0-50.0); Mean Corpuscular Hgb Conc. 33.1 g/dL (32.0-36.0); Mean Corpuscular Volume 87.5 fL (80.0-100.0); Monocytes # (auto) 0.4 10 ^3/uL (0-1.3); Monocytes % (auto) 7.9 % (0.0-12.0); Neutrophils # (auto) 3.2 10 ^3/uL (1.6-8.6); Neutrophils % (auto) 63.7 % (37.0-80.0); Red Blood Cells 3.56 10^6/uL (4.5-5.90); Red Cell Distribution Width 15.8 % (11.8-14.3)
[2023-04-25 06:32] LABS: Alanine Aminotransferase 17 U/L (7-40); Albumin 3.4 g/dL (3.2-4.8); Alkaline Phosphatase 90 U/L (46-116); Anion Gap 9 (5-15); Aspartate Aminotransferase 16 U/L (13-40); BUN/Creatinine Ratio 13.6 (10.0-20.0); Bilirubin, Total 0.3 mg/dL (0.2-1.0); Blood Urea Nitrogen 21 mg/dL (9-23); Calcium 8.5 mg/dL (8.5-10.1); Carbon Dioxide 19 mmol/L (20-30); Chloride 112 mmol/L (98-107); Glucose 108 mg/dL (74-106); Potassium 4.1 mmol/L (3.5-5.1); Sodium 140 mmol/L (136-145); Total Protein 5.9 g/dL (5.7-8.2)
[2023-04-25] MEDS: InsuLIN REG 1unit/0.01ml Soln (100units/ml) SC SCH ×4 (06:41→23:34)
[2023-04-25] MEDS: ACCU-CHEK COMFORT CURVE STRIP VI SCH ×4 (06:41→23:32)
[2023-04-25] MEDS ORDERED: LEVOTHYROXINE SODIUM 25 MCG TAB ONE (06:57)
[2023-04-25] MEDS: LEVOTHYROXINE SODIUM 25 MCG TAB PO SCH (07:01)
[2023-04-25 08:00] VITALS: PULSE 68; RESP 15; O2SAT 96
[2023-04-25] MEDS ORDERED: CYCLOBENZAPRINE HCL 10 MG TAB ONE (08:07)
[2023-04-25] MEDS ORDERED: HYDROcodone-ACET 10/325MG TAB ONE (08:07)
[2023-04-25] MEDS: HYDROcodone-ACET 10/325MG TAB PO PRN (08:10)
[2023-04-25] MEDS: CYCLOBENZAPRINE HCL 10 MG TAB PO PRN (08:10)
[2023-04-25] MEDS: ENALAPRIL MALEATE 10 MG TAB PO SCH ×2 (10:00→22:08)
[2023-04-25] MEDS ORDERED: ENOXAPARIN SOD 40 MG/0.4 ML SYRINGE SC SCH (10:00)
[2023-04-25] MEDS: MULTIPLE VITAMIN TAB PO SCH (10:43)
[2023-04-25] MEDS: CHOLECALCIFEROL (VITD3) 2,000 UNIT CAP/TAB PO SCH (10:44)
[2023-04-25] MEDS: PANTOPRAZOLE 40 MG TAB PO SCH (10:44)
[2023-04-25] MEDS: APIXABAN 5 MG TAB PO SCH ×2 (10:44→22:09)
[2023-04-25] MEDS: MORPHINE SULFATE INJ 2 MG/ml SYRG IV PRN ×2 (10:45→14:42)
[2023-04-25] MEDS: ASCORBIC ACID 500 MG TAB PO SCH ×2 (10:46→22:08)
[2023-04-25] MEDS ORDERED: cloNIDine HCL 0.1 MG TAB ONE (14:34)
[2023-04-25] MEDS: ZINC SULFATE 220mg CAP or TAB PO SCH (14:41)
[2023-04-25] MEDS: hydrALAZINE HCL 20 MG/ML VL IV PRN (14:42)
[2023-04-25] MEDS: SODIUM CHLORIDE 0.9% 1,000 ML IV SCH (14:50)
[2023-04-25 17:47] VITALS: BP 148/82; PULSE 74; RESP 21; TEMP 97.4; O2SAT 98
[2023-04-25] MEDS ORDERED: GABA-1250 PO (19:05)
[2023-04-25] MEDS ORDERED: INSLANTI SC (19:05)
[2023-04-25] MEDS ORDERED: HYDR-4798 PO (19:05)
[2023-04-25] MEDS ORDERED: HYDROmorphone HCL 2 MG/ML VL/or syr ONE (19:20)
[2023-04-25] MEDS: HYDROmorphone HCL 2 MG/ML VL/or syr IV PRN (19:25)
[2023-04-25 20:00] VITALS: PULSE 86
[2023-04-25 22:00] VITALS: BP 152/70; PULSE 82; RESP 22; TEMP 97.7; O2SAT 100
[2023-04-25] MEDS ORDERED: ENALAPRIL MALEATE 10 MG TAB ONE (22:06)
[2023-04-26] VITALS (8 sets, daily range): BP systolic 119–153; BP diastolic 61–90; PULSE 71–89; RESP 16–22; TEMP 97.4–98.4; O2SAT 98–100
[2023-04-26 00:24] LABS: Amphetamine Screen, Urine Neg (NEGATIVE); Barbiturate Scree,Urine Neg (NEGATIVE); Benzodiazephine Screen, Urine Neg (NEGATIVE)
[2023-04-26 00:25] LABS: Cannabinoid Screen, Urine Neg (NEGATIVE); Cocaine Screen, Urine Neg (NEGATIVE); Opiate Scree,Urine Pos (NEGATIVE); Phencyclidine Screen, Urine Neg (NEGATIVE)
[2023-04-26 00:28] LABS: Urine Bacteria MOD /hpf (None Seen); Urine Blood TRACE /uL (Negative); Urine Clarity HAZY (Clear); Urine Protein, UAD 3+ (Negative); Urine Specific Gravity 1.018 (1.001-1.035); Urine Urobilinogen Normal (Negative); Urine WBC 16 /hpf (0 - 3); Urine pH 6.5 (5.0-8.0)
[2023-04-26 00:29] LABS: Urine Color Straw (Yellow)
[2023-04-26] MEDS ORDERED: HYDROmorphone HCL 2 MG/ML VL/or syr ONE ×5 (01:36→21:35)
[2023-04-26] MEDS: HYDROmorphone HCL 2 MG/ML VL/or syr IV PRN ×4 (01:38→21:40)
[2023-04-26] MEDS: SODIUM CHLORIDE 0.9% 1,000 ML IV SCH ×2 (04:35→21:41)
[2023-04-26] MEDS: InsuLIN REG 1unit/0.01ml Soln (100units/ml) SC SCH ×4 (07:00→22:00)
[2023-04-26] MEDS ORDERED: LEVOTHYROXINE SODIUM 25 MCG TAB ONE (07:32)
[2023-04-26] MEDS ORDERED: LEVOTHYROXINE SODIUM 50 MCG TAB ONE (07:32)
[2023-04-26] MEDS: LEVOTHYROXINE SODIUM 25 MCG TAB PO SCH (07:35)
[2023-04-26] MEDS: ACCU-CHEK COMFORT CURVE STRIP VI SCH ×4 (07:36→22:00)
[2023-04-26] MEDS ORDERED: ENALAPRIL MALEATE 10 MG TAB ONE ×2 (08:20→21:35)
[2023-04-26] MEDS: APIXABAN 5 MG TAB PO SCH ×2 (08:29→21:39)
[2023-04-26] MEDS: ENALAPRIL MALEATE 10 MG TAB PO SCH ×2 (08:30→21:40)
[2023-04-26] MEDS: ASCORBIC ACID 500 MG TAB PO SCH ×2 (08:30→21:39)
[2023-04-26] MEDS: PANTOPRAZOLE 40 MG TAB PO SCH (08:30)
[2023-04-26] MEDS: ZINC SULFATE 220mg CAP or TAB PO SCH (08:31)
[2023-04-26] MEDS: CHOLECALCIFEROL (VITD3) 2,000 UNIT CAP/TAB PO SCH (08:31)
[2023-04-26] MEDS: MULTIPLE VITAMIN TAB PO SCH (10:00)
[2023-04-26] MEDS: DAKINS QUARTER STR 0.125% (NaHypochlorite) 473 ML TOPICAL SOL TOP SCH (10:00)
[2023-04-26] MEDS ORDERED: ATORVASTATIN 20 MG TAB ONE (21:35)
[2023-04-26] MEDS ORDERED: ATORVASTATIN 20 MG TAB PO SCH (22:00)
[2023-04-26] MEDS: hydrALAZINE HCL 20 MG/ML VL IV PRN (23:15)
[2023-04-27] MEDS: CYCLOBENZAPRINE HCL 10 MG TAB PO PRN (00:28)
[2023-04-27 02:07] VITALS: BP 153/81; PULSE 89; RESP 20; TEMP 98.1
[2023-04-27] MEDS: HYDROmorphone HCL 2 MG/ML VL/or syr IV PRN ×2 (04:20→11:42)
[2023-04-27 05:00] VITALS: BP 112/63; PULSE 91; RESP 14; TEMP 98; O2SAT 96
[2023-04-27] MEDS: ACCU-CHEK COMFORT CURVE STRIP VI SCH ×2 (06:10→12:30)
[2023-04-27] MEDS: InsuLIN REG 1unit/0.01ml Soln (100units/ml) SC SCH ×2 (06:10→11:30)
[2023-04-27] MEDS: LEVOTHYROXINE SODIUM 25 MCG TAB PO SCH (06:15)
[2023-04-27 08:00] VITALS: PULSE 82
[2023-04-27] MEDS ORDERED: APIX5TAB PO (09:08)
[2023-04-27] MEDS ORDERED: ATO40T PO (09:08)
[2023-04-27] MEDS: APIXABAN 5 MG TAB PO SCH (09:18)
[2023-04-27] MEDS: CHOLECALCIFEROL (VITD3) 2,000 UNIT CAP/TAB PO SCH (09:18)
[2023-04-27] MEDS: ZINC SULFATE 220mg CAP or TAB PO SCH (09:19)
[2023-04-27] MEDS: MULTIPLE VITAMIN TAB PO SCH (09:19)
[2023-04-27] MEDS: PANTOPRAZOLE 40 MG TAB PO SCH (09:19)
[2023-04-27] MEDS: ASCORBIC ACID 500 MG TAB PO SCH (09:19)
[2023-04-27] MEDS: ENALAPRIL MALEATE 10 MG TAB PO SCH (09:20)
[2023-04-27] MEDS: DAKINS QUARTER STR 0.125% (NaHypochlorite) 473 ML TOPICAL SOL TOP SCH (10:00)
[2023-04-27 10:49] VITALS: BP 146/86; PULSE 84; RESP 18; TEMP 97.8; O2SAT 97
[2023-04-27] MEDS: hydrALAZINE HCL 20 MG/ML VL IV PRN (11:41)
[2023-04-27 12:53] VITALS: BP 134/69; PULSE 95; RESP 18; TEMP 97.7; O2SAT 100
[2023-04-27] MEDS: SODIUM CHLORIDE 0.9% 1,000 ML IV SCH (13:55)
[2023-04-28 09:14] LABS: Hepatitis B Surface Antigen Negative (Negative)
[2023-04-28 09:37] LABS: Hepatitis C Antibody Negative (Negative)
== END 2023-04-27 15:31 | disposition home or self-care (01) | DRG 305 ==
LOC: EDBD 14:13 → EDUNIT# 14:13 → ER 14:13 → TELE 19:19 → TELE-EAST 04-25 17:59
PROVIDERS: ADMIT Nurse Practitioner Family; ATTEND Family Medicine
DX: I16.1 Hypertensive emergency (principal); G82.20 Paraplegia, unspecified; I69.351 Hemiplegia and hemiparesis following cerebral infarction affecting right dominant side; R29.810 Facial weakness; I10 Essential (primary) hypertension; E11.9 Type 2 diabetes mellitus without complications; K21.9 Gastro-esophageal reflux disease without esophagitis; M25.462 Effusion, left knee; M79.89 Other specified soft tissue disorders; E66.01 Morbid (severe) obesity due to excess calories; Z68.36 Body mass index [BMI] 36.0-36.9, adult; Z88.1 Allergy status to other antibiotic agents; Z83.3 Family history of diabetes mellitus; Z93.3 Colostomy status; Z79.899 Other long term (current) drug therapy; Z79.01 Long term (current) use of anticoagulants
CPT/HCPCS: 36415; 70450; 71045; 73562; 80053; 80061; 80307; 81001; 82962; 83036; 83605; 83880; 84443; 84484; 85025; 86803; 87040; 87081; 87205; 87340; 93306; 93886; 93970; G0378; J1815; J3490